=== PATIENT | male | born 1995 | race Caucasian/White ===

== ENCOUNTER 2019-01-01 19:01 | Emergency (ER) | payer OTHER ==
--- NOTE | 2019-01-01 19:26 | EDM.PDOC ---
ED HPI GENERAL MEDICAL PROBLEM - General Chief Complaint: Lower Extremity Injury/Pain Stated Complaint: METAL SHAVING IN HAND Time Seen by Provider: 01/01/19 19:25 Source of Information: Reports: Patient - History of Present Illness INITIAL COMMENTS - FREE TEXT/NARRATIVE: HISTORY AND PHYSICAL: History of present illness: []Patient was working with a tool joining pipe earlier today, sounds as if a metal shaving was introduced into his right 4th digit palmar aspect some pain with movement no pain at rest No fever nausea vomiting chills sweats Review of systems: As per history of present illness and below otherwise all systems reviewed and negative. Past medical history: As per history of present illness and as reviewed below otherwise noncontributory. Surgical history: As per history of present illness and as reviewed below otherwise noncontributory. Social history: No reported history of drug or alcohol abuse. Family history: As per history of present illness and as reviewed below otherwise noncontributory. Physical exam: HEENT: Atraumatic, normocephalic, pupils reactive, negative for conjunctival pallor or scleral icterus, mucous membranes moist, throat clear, neck supple, nontender, trachea midline. Lungs: Clear to auscultation, breath sounds equal bilaterally, chest nontender. Heart: S1S2, regular, negative for clicks, rubs, or JVD. Abdomen: Soft, nondistended, nontender. Negative for masses or hepatosplenomegaly. Negative for costovertebral tenderness. Pelvis: Stable nontender. Genitourinary: Deferred. Rectal: Deferred. Extremities: Atraumatic, negative for cords or calf pain. Neurovascular unremarkable. Neuro: Awake, alert, oriented. Cranial nerves II through XII unremarkable. Cerebellum unremarkable. Motor and sensory unremarkable throughout. Exam nonfocal. Diagnostics: [Right third digit ] Therapeutics: [ status is up-to-date Gram Rocephin IM ] Impression: [ foreign body right 4th digit ] Definitive disposition and diagnosis as appropriate pending reevaluation and review of above. right 3rd finger Pain Score (Numeric/FACES): 2 - Related Data Allergies Allergy/AdvReac Type Severity Reaction Status Date / Time No Known Allergies Allergy Verified 01/01/19 19:13 Home Meds: Home Meds . [No Known Home Meds] 01/01/19 [History] Past Medical History HEENT History: Reports: None Other Cardiovascular History: heart surgery when infant Respiratory History: Reports: None Gastrointestinal History: Reports: None Genitourinary History: Reports: None Musculoskeletal History: Reports: None Neurological History: Reports: None Psychiatric History: Reports: None Endocrine/Metabolic History: Reports: None Hematologic History: Reports: None Oncologic (Cancer) History: Reports: None Dermatologic History: Reports: None - Infectious Disease History Infectious Disease History: Reports: Chicken Pox - Past Surgical History Male Surgical History: Reports: None Musculoskeletal Surgical History: Reports: None Social & Family History - Family History Family Medical History: Noncontributory - Tobacco Use Smoking Status *Q: Never Smoker - Recreational Drug Use Recreational Drug Use: No Review of Systems - Review of Systems Review Of Systems: See Below ED EXAM, GENERAL - Physical Exam Exam: See Below Course - Vital Signs Last Recorded V/S: Last Vital Signs Temp 97.5 F 01/01/19 19:13 Pulse 69 01/01/19 19:13 Resp 14 01/01/19 19:13 BP 118/67 01/01/19 19:13 Pulse Ox 98 01/01/19 19:13 - Orders/Labs/Meds Orders: Active Orders 24 hr Category Date Time Status Fingers Fourth Digit Rt F8 [CR] Stat Exams 01/01/19 21:14 Taken Meds: Medications Discontinued Medications Generic Name Dose Route Start Last Admin Trade Name Renu PRN Reason Stop Dose Admin Ceftriaxone Sodium 1 gm 01/01/19 20:12 01/01/19 20:25 Rocephin IM 01/01/19 20:13 1 gm ONETIME ONE Administration Lidocaine HCl Confirm 01/01/19 20:15 01/01/19 20:25 Xylocaine-Mpf 1% Administered 01/01/19 20:16 2 mls/hr Dose Administration 2 mls @ as directed .ROUTE .STK-MED ONE Lidocaine HCl 5 ml 01/01/19 19:50 01/01/19 20:25 Xylocaine-Mpf 1% INJECT 01/01/19 19:51 5 ml ONETIME ONE Administration Departure - Departure Time of Disposition: 21:38 Disposition: Home, Self-Care 01 Condition: Good Clinical Impression: Foreign body (FB) in soft tissue - Discharge Information Referrals: PCP,None [Primary Care Provider] - Forms: ED Department Discharge Additional Instructions: Foreign body remains in fourth digit 1 g Rocephin been provided, prescription for Keflex 500 by mouth twice a day # 20 no refill provided Standard wound care instructions Bacitracin and bandaging splint for comfort Call Dr. Posadas hand specialist at [facility] in [place] tomorrow morning, can be reached through their switchboard phone number [phone], he is aware of your case and will set up a follow-up time in his clinic for you The following information is given to patients seen in the emergency department who are being discharged to home. This information is to outline your options for follow-up care. We provide all patients seen in our emergency department with a follow-up referral. The need for follow-up, as well as the timing and circumstances, are variable depending upon the specifics of your emergency department visit. If you don't have a primary care physician on staff, we will provide you with a referral. We always advise you to contact your personal physician following an emergency department visit to inform them of the circumstance of the visit and for follow-up with them and/or the need for any referrals to a consulting specialist. The emergency department will also refer you to a specialist when appropriate. This referral assures that you have the opportunity for follow-up care with a specialist. All of these measure are taken in an effort to provide you with optimal care, which includes your follow-up. Under all circumstances we always encourage you to contact your private physician who remains a resource for coordinating your care. When calling for follow-up care, please make the office aware that this follow-up is from your recent emergency room visit. If for any reason you are refused follow-up, please contact the [facility] emergency department at and asked to speak to the emergency department charge nurse. - My Orders Last 24 Hours: My Active Orders 01/01/19 21:14 Fingers Fourth Digit Rt F8 [CR] Stat - Assessment/Plan Last 24 Hours: My Active Orders 01/01/19 21:14 Fingers Fourth Digit Rt F8 [CR] Stat
--- NOTE | 2019-01-01 20:03 | CR ---
INDICATION: Foreign body. TECHNIQUE: Three views of the right 4th finger. FINDINGS: There is a slender radiodense metallic foreign body within the soft tissues of the palmar aspect mid right 4th finger. No fracture. Impression : Slender curvilinear metallic radiodense foreign body in the palmar soft tissues mid right 4th finger. Dictated by Kashif Quinn MD @ Jan 01 2019 7:59PM Signed by Dr. Kashif Quinn @ Jan 01 2019 8:01PM
[2019-01-01] MEDS ORDERED: cefTRIAXone 1 GM Vial IM ONE (20:12)
[2019-01-01] MEDS ORDERED: Lidocaine 1% 2 ML ONE (20:15)
--- NOTE | 2019-01-01 21:44 | CR ---
INDICATION: Foreign body TECHNIQUE: Single lateral view of the right hand 9:16 p.m. COMPARISON: 7:43 p.m. FINDINGS: Bones: Alignment is normal. No fractures or bone lesions. Joint spaces: Unremarkable. Soft tissues: A 6 millimeter curvilinear wire like radiopaque foreign body is noted in the soft tissues anterior to the middle phalanx 2nd digit. Adjacent laceration noted. IMPRESSION: 6 millimeter curvilinear wire like radiopaque foreign body present in the soft tissues anterior to the proximal middle phalanx 2nd digit. Dictated by Ryan Torres MD @ 01/01/2019 9:42:36 PM Dictated by: Ryan Torres MD @ 01/01/2019 21:42:43 (Electronically Signed)
== END 2019-01-01 22:00 | disposition home or self-care (01) ==
LOC: MW.ED 19:01
DX: M79.5 Residual foreign body in soft tissue (principal)
CPT/HCPCS: 73140; 96372; 99283; J0696; J2001